=== PATIENT | male | born 1960 | race Caucasian/White ===

== ENCOUNTER 2024-02-09 07:51 | Outpatient (CLI) | payer OTHER, SELFPAY ==
--- NOTE | ~2024-02-09 | US_ITS ---
Abdominal Sonogram: Real-time sonographic imaging of the abdomen was performed. Clinical History: Abnormal LFTs Findings: The liver appears mildly echogenic, with no evidence of mass lesion or bile duct dilatatio n. Main portal vein demonstrates normal direction of flow. The spleen is normal in size without evide nce of focal lesion. The gallbladder is well distended, and appears normal with no evidence of galls tone or wall thickening. The common bile duct measures 5 mm. The visualized pancreas and IVC are unr emarkable. There is atherosclerotic change of the abdominal aorta. The right kidney measures 10.5 cm in length and the left kidney measures 11.6 cm. There is no hydronephrosis or renal calculus. Impression: Diffuse fatty infiltration of the liver. Reviewed, dictated and finalized at location [facility]. Impression: Diffuse fatty infiltration of the liver.
--- NOTE | ~2024-02-09 | CT_ITS ---
CT Scan of the Chest without Contrast: Clinical Indication: Lung cancer screening, nicotine dependence Technique: Contiguous sections were acquired throughout the chest without intravenous contrast. Dose reduction technique was used on this scan by utilizing automated exposure control and iterative recon struction technique. The dose-length product (DLP) was 86.80 mGy-cm. Findings: There is no evidence of any significant mediastinal, hilar or axillary lymphadenopathy. The mediastin al soft tissues appear normal. There is no evidence of pleural or pericardial effusion. 1.3 cm right upper lobe pulmonary nodule present (axial image 37). Images through the upper abdomen reveal no abnormalities. Impression: Lung RADS 4A: Suspicious. Recommend 3 month follow-up CT versus PET/CT. Reviewed, dictated and finalized at [facility]. Impression: Lung RADS 4A: Suspicious. Recommend 3 month follow-up CT versus PET/CT.
== END 2024-02-09 07:52 | disposition home or self-care (01) ==
LOC: CHSIMG 07:55
PROVIDERS: PCP Registered Nurse; Visit Provider Registered Nurse
DX: Z12.2 Encounter for screening for malignant neoplasm of respiratory organs (principal); Z87.891 Personal history of nicotine dependence; R79.89 Other specified abnormal findings of blood chemistry; K76.0 Fatty (change of) liver, not elsewhere classified; R91.8 Other nonspecific abnormal finding of lung field
CPT/HCPCS: 71271; 76700

== ENCOUNTER 2024-03-14 10:25 | Outpatient (CLI) | payer OTHER, SELFPAY ==
--- NOTE | ~2024-03-14 | CT_ITS ---
CLINICAL INDICATION: Right flank pain radiating to the right lower quadrant COMPARISON: Ultrasound examination dated 02/09/2024. TECHNIQUE: Multiple contiguous axial images of the abdomen and pelvis were performed without the admi nistration of intravenous contrast The dose-length product (DLP) was 402.89 mGy-cm. Automated exposure control and iterative reconstruction technique were employed. FINDINGS/OBSERVATIONS: Visualized lower thorax: The bilateral lung bases are clear. The heart is of normal size, without pericardial effusion. Liver: 12 mm irregular focus of decreased attenuation within segment 4 of the liver. The liver otherwise demonstrates homogeneous attenuation and is not enlarged measuring 18 cm in longi tudinal dimension. Gallbladder and biliary system: The gallbladder is decompressed, and otherwise unremarkable. Pancreas: Limited evaluation of the pancreas secondary to the lack of intravenous contrast. Spleen: The spleen demonstrates homogeneous attenuation and is not enlarged measuring 8 cm in longitudinal di mension. Kidneys: 7 mm focus of increased attenuation is identified within the parenchyma of the lower pole of the righ t kidney. Additional 8 mm focus of increased attenuation within the posterior margin of the upper pole of the r ight kidney. A 4 mm nonobstructing calculus is identified within the left renal collecting system. No hydronephrosis or renal calculi. Adrenal glands: Unremarkable Unremarkable. Gastrointestinal tract: Colonic diverticulosis without surrounding inflammatory change. Fecal stasis within the colon. Appendix: The air-filled appendix is of normal caliber (axial series, images 105 through 111) Vasculature: Calcified atherosclerotic disease. Lymph nodes: No pathologically enlarged or morphologically suspicious lymph nodes within the retroperitoneum or at the root of the mesentery. Pelvic structures: The bladder is minimally distended, and otherwise unremarkable. The prostate gland is not enlarged. Body wall and musculoskeletal: No significant degenerative disease within the lower thoracic or lumbosacral spine. IMPRESSION: Two subcentimeter foci of increased attenuation identified within the right kidney parenchyma. Calcified parenchymal lesions should be further evaluated with contrast-enhanced imaging with renal m ass protocol (either CT or MRI). Nonobstructing calculus within the left kidney. 12 mm irregular focus of decreased attenuation within the liver, too small to characterize. Reviewed, dictated and finalized at location [facility]. [employer] IMPRESSION: Two subcentimeter foci of increased attenuation identified within the right kid lex parenchyma. Calcified parenchymal lesions should be further evaluated with contrast-enhance d imaging with renal mass protocol (either CT or MRI). Nonobstructing calculus within the left kidney. 12 mm irregular focus of decreased attenuation within the liver, too small to c haracterize.
== END 2024-03-14 10:26 | disposition home or self-care (01) ==
PROVIDERS: PCP Registered Nurse; Visit Provider Registered Nurse
DX: R10.9 Unspecified abdominal pain (principal); N28.9 Disorder of kidney and ureter, unspecified; N20.0 Calculus of kidney; R93.2 Abnormal findings on diagnostic imaging of liver and biliary tract
CPT/HCPCS: 74176